=== PATIENT | female | born 1995 | race Hispanic/Latino ===

== ENCOUNTER 2017-12-24 22:57 | Emergency (ER) | payer SELFPAY ==
--- NOTE | 2017-12-24 23:40 | C.PDOC ---
Time Seen by Provider: 12/24/17 23:10 Chief Complaint (Nursing): Allergic Reaction History Per: Patient Onset/Duration Of Symptoms: Days (3) Current Symptoms Are (Timing): Still Present Context: Travel (Visiting from [place]) Possible Cause: Other (Makeup) Associated Symptoms: Skin Rash, Itching Home/EMS Treatment: None Severity: Moderate Additional History Per: Prior Records Past Medical History Reviewed: Historical Data, Nursing Documentation, Vital Signs Vital Signs: Last Vital Signs Temp 97.4 F L 12/24/17 23:02 Pulse 110 H 12/24/17 23:02 Resp 20 12/24/17 23:02 BP 122/83 12/24/17 23:02 Pulse Ox 99 12/24/17 23:02 - Medical History PMH: No Chronic Diseases Family History: States: Unknown Family Hx - Social History Hx Alcohol Use: No Hx Substance Use: No Review Of Systems Except As Marked, All Systems Reviewed And Found Negative. Constitutional: Negative for: Fever, Weakness ENT: Negative for: Mouth Pain, Mouth Swelling, Throat Pain, Throat Swelling Respiratory: Negative for: Shortness of Breath, Wheezing Gastrointestinal: Negative for: Vomiting, Abdominal Pain Musculoskeletal: Negative for: Neck Pain Skin: Positive for: Rash Neurological: Negative for: Weakness, Numbness Physical Exam - Physical Exam Appears: Non-toxic, No Acute Distress Skin: Warm, Dry, Rash (tiny papules and pustules on face. ) Head: Atraumatic, Normacephalic Eye(s): bilateral: Normal Inspection, PERRL, EOMI Oral Mucosa: Moist, No Drooling, No Trismus Throat: Normal Neck: Normal ROM, Supple Lymphatic: No Adenopathy Cardiovascular: Rhythm Regular Respiratory: Normal Breath Sounds, No Accessory Muscle Use Extremity: Normal ROM, No Pedal Edema, No Calf Tenderness Neurological/Psych: Oriented x3, Normal Motor, Normal Sensation ED Course And Treatment O2 Sat by Pulse Oximetry: 99 Pulse Ox Interpretation: Normal Disposition Counseled Patient/Family Regarding: Diagnosis, Need For Followup, Rx Given - Disposition Disposition: HOME/ ROUTINE Disposition Time: 23:42 Condition: STABLE Additional Instructions: Avoid putting makeup or chemicals on your face. Avoid direct sunlight. Follow up with your doctor. Return to the ER if you develop worsening of symptoms or if you have any other concerns. Prescriptions: predniSONE [predniSONE Tab] 2 tab PO DAILY #8 tab Instructions: Skin Rash (DC) - Clinical Impression Clinical Impression: Facial rash
[2017-12-25] VITALS: BP 119/86; PULSE 98; RESP 16; TEMP 97.5; O2SAT 98
== END 2017-12-25 00:01 | disposition home or self-care (01) ==
LOC: C.ER 22:57
DX: R21 Rash and other nonspecific skin eruption (principal)